=== PATIENT | female | born 1950 | race Caucasian/White ===

== ENCOUNTER 2017-10-05 16:39 | Emergency (ER) | payer OTHER ==
[~2017-10-05] VITALS: Ht 165.1 cm; Wt 83.9 kg
[2017-10-05] MEDS ORDERED: VASOTEC2.5 MG (16:49)
== END 2017-10-05 17:25 | disposition home or self-care (01) ==
LOC: ER 16:39
DX: H10.89 Other conjunctivitis (principal)